=== PATIENT | female | born 1970 | race Caucasian/White ===

== ENCOUNTER 2017-01-17 09:21 | Emergency (ER) | payer OTHER ==
[2017-01-17 08:55] LABS: INR 0.99 (0.9-1.2); PROTHROMBIN TIME 12.7 SECONDS (11.7-14.0)
[2017-01-17 08:56] LABS: PTT 26.6 SECONDS (23.2-31.4)
[2017-01-17 09:07] LABS: CKMB 1.15 ng/mL (0.97-4.94); MYOGLOBIN 26 ng/mL (26-65); PRO-BNP 60 pg/mL (0-125); TROPONIN T < 0.010 ng/mL
[2017-01-17 09:11] LABS: ALBUMIN 3.5 g/dL (3.5-5.0); BILIRUBIN - TOTAL 0.3 mg/dL (0.1-1.0); CREATININE 0.6 mg/dL (0.5-1.0); GLOBULIN (CALCULATION) 3.2 g/dL (2.2-4.2); MAGNESIUM 1.84 mg/dL (1.40-2.10); POTASSIUM 4.3 mmol/L (3.5-5.1); TOTAL PROTEIN 6.7 g/dL (6.4-8.3)
[2017-01-17 09:37] LABS: BASOPHIL 0.2 % (0-2); EOSINOPHIL 2.8 % (0-5); HCT 37.3 % (37.0-47.0); MCH 28.6 pg (25.0-31.0); MCHC 32.2 g/dL (32.0-36.0); MCV 88.8 fL (78.0-100.0); MONOCYTE 6.7 % (0-12); MPV 9.7 fL (6.0-9.5); NEUTROPHIL 57.3 % (41-80); PLT 288 K/Ul (150-400); RDW 13.5 % (11.5-14.0); WBC 8.2 K/uL (4.0-10.5)
== END 2017-01-17 10:35 | disposition home or self-care (01) ==
LOC: FER 09:21
PROVIDERS: Emergency Medicine
DX: K21.0 Gastro-esophageal reflux disease with esophagitis (principal); I10 Essential (primary) hypertension; E11.9 Type 2 diabetes mellitus without complications; Z79.84 Long term (current) use of oral hypoglycemic drugs; Z98.890 Other specified postprocedural states; Z79.899 Other long term (current) drug therapy
CPT/HCPCS: 36415; 71020; 80053; 82550; 82553; 83735; 83874; 83880; 84484; 85025; 85610; 85730; 93005

== ENCOUNTER 2021-12-08 02:39 | Emergency (ER) | payer OTHER ==
[2021-12-08 03:12] LABS: BASOPHIL 0.8 % (0-2); EOSINOPHIL 2.6 % (0-5); HCT 44.2 % (37.0-47.0); HGB 14.3 g/dl (12.5-16.0); LYMPHOCYTE 46.4 % (15-48); MCH 28.8 pg (25.0-31.0); MCHC 32.4 g/dL (32.0-36.0); MCV 89.1 fL (78.0-100.0); MONOCYTE 6.1 % (0-12); MPV 9.5 fL (6.0-9.5); NEUTROPHIL 43.8 % (41-80); NRBC 0; PLT 365 K/uL (150-400); RBC 4.96 M/uL (4.20-5.40); WBC 11.4 K/uL (4.0-10.5)
[2021-12-08 03:28] LABS: ALBUMIN 3.6 g/dL (3.4-5.0); BILIRUBIN - TOTAL 0.4 mg/dL (0.2-1.0); CREATININE 1.06 mg/dL (0.51-0.95); GLOBULIN (CALCULATION) 4.4 g/dL; POTASSIUM 3.3 mmol/L (3.5-5.1)
[2021-12-08 03:48] LABS: CORONAVIRUS 2019 SARS-COV-2 NEGATIVE (NEGATIVE); INFLUENZA A NAA NEGATIVE (NEGATIVE)
[2021-12-08 03:50] LABS: BILIRUBIN NEGATIVE (NEGATIVE); BLOOD NEGATIVE Ery/uL (NEGATIVE); CLARITY CLEAR (CLEAR); COLOR YELLOW (YELLOW); GLUCOSE (U) NORMAL (NORMAL); LEUKOCYTES NEGATIVE Leu/uL (NEGATIVE); NITRITE NEGATIVE (NEGATIVE); PROTEIN NEGATIVE (NEGATIVE); UROBILINOGEN 0.2 mg/dL (0.2-1.0)
[2021-12-08 03:51] LABS: AMPHETAMINES NEGATIVE (NEGATIVE); BARBITURATES NEGATIVE (NEGATIVE); ECSTASY (MDMA) NEGATIVE (NEGATIVE); MARIJUANA (THC) NEGATIVE (NEGATIVE); METHADONE NEGATIVE (NEGATIVE); OPIATES NEGATIVE (NEGATIVE); OXYCODONE NEGATIVE (NEGATIVE)
[2021-12-08] MEDS ORDERED: PERCOCET 5-3251 EACH PO (05:11)
[2021-12-08] MEDS ORDERED: ONDANSETRON ODT4 MG PO (05:11)
== END 2021-12-08 09:14 | disposition home or self-care (01) ==
LOC: FER 02:39
PROVIDERS: Internal Medicine
DX: R10.11 Right upper quadrant pain (principal); R11.0 Nausea; E11.9 Type 2 diabetes mellitus without complications; I10 Essential (primary) hypertension; Z20.822 Contact with and (suspected) exposure to COVID-19; Z88.8 Allergy status to other drugs, medicaments and biological substances
CPT/HCPCS: 36415; 80053; 80305; 81003; 83690; 84145; 84484; 85025; 93005; J1170; J2405; U0002

== ENCOUNTER → 2022-01-07 | Day surgery (SDC) | payer OTHER ==
[~2022-01-07] VITALS: Ht 167.6 cm; Wt 127.0 kg
[~2022-01-07] MED LIST: ASPIRIN EC81 MG PO; BENTYL10 MG PO; COLACE100 MG PO; DICYCLOMINE HCL20 MG PO; GLUCOTROL10 MG PO; HYDROCODON-ACE1 EAC2 PO; LIPITOR 10MG TA10 MG PO; MOTRIN600 MG PO; ONDANSETRON ODT4 MG PO; PEPCID AC20 MG PO; PERCOCET 5-3251 EACH PO; TRIAMTERENE-HC1 EAC3 PO
[2022-01-07 12:25] LABS: BUN/CREAT RATIO (CALC) 15.1 RATIO; CREATININE 1.06 mg/dL (0.51-0.95); POTASSIUM 3.9 mmol/L (3.5-5.1)
== END | disposition home or self-care (01) ==
LOC: FAS 10:52
PROVIDERS: Anesthesiology
DX: K80.20 Calculus of gallbladder without cholecystitis without obstruction (principal); K76.0 Fatty (change of) liver, not elsewhere classified; I10 Essential (primary) hypertension; E11.9 Type 2 diabetes mellitus without complications; K21.9 Gastro-esophageal reflux disease without esophagitis; E78.00 Pure hypercholesterolemia, unspecified; M19.90 Unspecified osteoarthritis, unspecified site; E66.01 Morbid (severe) obesity due to excess calories; Z68.42 Body mass index [BMI] 45.0-49.9, adult; Z88.8 Allergy status to other drugs, medicaments and biological substances; Z79.82 Long term (current) use of aspirin; Z79.899 Other long term (current) drug therapy
CPT/HCPCS: 36415; 80048; J1100; J1170; J1644; J1885; J2001; J2250; J2405; J2704; J3010; J7120